=== PATIENT | female | born 1955 | race Caucasian/White ===

== ENCOUNTER 2019-03-03 17:41 | Observation (INO) | payer MEDICAID ==
[~2019-03-03] VITALS: Ht 152.4 cm; Wt 65.0 kg
[~2019-03-03 17:41] MED LIST: ATOR20TA38 PO; METF500T24 PO
[2019-03-03 17:42] VITALS: Ht 152.4 cm; Wt 65.0 kg
[2019-03-03] MEDS ORDERED: SOD CHLORIDE 0.9% 500 ML IV STA (17:42)
[2019-03-03] MEDS ORDERED: ASPIRIN 325 MG TAB PO STA (17:42)
[2019-03-03] MEDS ORDERED: ONDANSETRON 4 MG INJ IV STA (17:42)
[2019-03-03] MEDS ORDERED: morphine 2 MG INJ IV STA (17:42)
--- NOTE | 2019-03-03 17:56 | ERD ---
ER Documentation Chief Complaint Chief Complaint CP AND DIZZINESS X TODAY. HPI This is a very pleasant 63-year-old [place]-speaking female with a past medical history of hypertension high cholesterol that presents to the emergency department complaining of chest pain that began about an hour prior to arrival. The patient stated the pain was left substernal. It did not radiate to her neck arm back or jaw. The pain was 8 out of 10 in intensity. She had associated symptoms of nausea and dizziness but denied any emesis. The patient was called as a code green as she was in the hospital trying to find the emergency department when she felt very lightheaded and dizzy and had a sensation as thou gh she was going to pass out but did not have a complete transient loss of consciousness. She had no associated symptoms of shortness of breath. She does not smoke tobacco. She states she is never had any similar chest pain in the past. No recent travel or hospitalizations. ROS All systems reviewed and are negative except as per history of present illness. Medications Home Meds Reported Medications [None] No Conflict Check 08/11/10 Allergies Allergies: Coded Allergies: No Known Drug Allergy (Verified Allergy, Unknown, 08/11/10) PMhx/Soc History of Surgery: Yes (CSECTION) Anesthesia Reaction: No Hx Neurological Disorder: No Hx Respiratory Disorders: No Hx Cardiac Disorders: Yes (HTN) Hx Psychiatric Problems: No Hx Miscellaneous Medical Probl: No Hx Alcohol Use: No Hx Substance Use: No Hx Tobacco Use: No Smoking Status: Unknown if ever smoked Physical Exam Vitals Vital Signs Date Temp Pulse Resp B/P (MAP) Pulse Ox O2 O2 Flow FiO2 Time Delivery Rate 03/03/19 98.1 75 20 155/72 100 Nasal 2.0 17:43 (99) Cannula 03/03/19 98.1 76 20 155/72 100 17:42 (99) Physical Exam Constitutional:Well-developed. Well-nourished. HEENT:Normocephalic. Atraumatic.Pupils were equal round reactive to light. Moist mucous membranes.No tonsillar exudates. Neck: No nuchal rigidity. No lymphadenopathy. No posterior cervical spine tenderness or step-offs. Respiratory: Not using accessory muscles of respiration.Lungs were clear to auscultation bilaterally. No rhonchi. No rales. No wheezing. Cardiovascular: Regular rate regular rhythm.No murmurs. No rubs were appreciated.S1, S2 normal. Distal pulses are palpable 2+ bilaterally. GI: Abdomen was soft. Nontender. Non Distended. No pulsatile abdominal masses or bruits. No rebound. No guarding. Bowel sounds were present and normal. Muscle skeletal: Full range of motion of both the upper and lower extremities bilaterally.Normal muscle tone.No assymetrical calf tenderness or swelling. Skin: No petechia, no purpura. No lesions on the palms or the soles of the feet. No maculopapular rash. NEURO: Patient was alert, awake, orientated x3.No facial droop. Gait observed and normal with no ataxia.Speech had regular rate and rhythm. No focal neurological deficits. No nystagmus Results 24 hrs Laboratory Tests Test 03/03/19 17:47 Bedside Glucose 159 mg/dL Current Medications Medications Dose Sig/Bishnu Start Time Status Last (Trade) Ordered Route PRN Stop Time Admin Dose Reason Admin Sodium 500 ml @ Q1H STAT 03/03/19 Chloride 500 mls/hr IV 17:42 03/03/19 18:41 Aspirin 325 mg ONCE STAT 03/03/19 DC (Aspirin) PO 17:42 03/03/19 17:44 1 tab Q5M UP TO 3 03/03/19 Nitroglycerin DOSES PRN 18:00 SL .CHEST (Nitroglyceri PAIN n (Sl Tab) 0.4 Mg) Morphine 2 mg ONCE STAT 03/03/19 DC Sulfate IV 17:42 (morphine) 03/03/19 17:44 Ondansetron 4 mg ONCE STAT 03/03/19 DC HCl (Zofran IV 17:42 Inj) 03/03/19 17:44 Procedures/MDM The patient presented to the emergency department with chest pain. My clinical evaluation and workup was to distinguish minor causes of chest pain from acute life threatening conditions such as myocardial infarction, pulmonary embolism, aortic dissection, esophageal rupture, cardiac tamponade. The patient was placed on a cardiac cath lab manager and continuous pulse oximetry. IV access established by nursing staff. 12 Lead EKG tracing ordered and reviewed by myself showed: Normal sinus rhythm of 73 bpm and no arrhythmia. [place] interval normal. QRS duration normal. No ST segment elevation. Left axis deviation. T wave inversion in the anterior leads V2 V3 No ST segment depression. No changes consistent with acute ischemia. The patient had a chest radiograph which showed no infiltrates no pneumothorax and no pleural effusions. The patient was given aspirin nitroglycerin with no improvement of her chest pain. Therefore she was given intravenous morphine and Zofran and the pain improved. I did feel the patient required admission for observation for serial twelve-lead EKG tracings and cardiac set of enzymes. Patient will be admitted to the hospitalist. The patient also had a near syncope episode and I did feel is necessary to obtain a CT scan the patient's head there is no intracerebral hemorrhage mass- effect or midline shift. Departure Diagnosis: Primary Impression: Chest pain Chest pain type: unspecified Qualified Codes: R07.9 - Chest pain, unspecified Additional Impression: Near syncope Condition: Serious ROSALVA AMBRIZ MD Mar 03, 2019 17:56
[2019-03-03] MEDS ORDERED: NITROGLYCERIN (SL) 0.4 MG TAB SL PRN ×2 (18:00→19:30)
[2019-03-03] MEDS ORDERED: SOD CHLORIDE 0.45% 1,000 ML IV SCH (19:06)
[2019-03-03] MEDS ORDERED: MAGNESIUM HYDROXIDE 30ML CUP PO PRN (19:30)
[2019-03-03] MEDS ORDERED: HYDROCODONE/APAP (5/325) TAB PO PRN (19:30)
[2019-03-03] MEDS ORDERED: morphine 2 MG INJ IV PRN (19:30)
[2019-03-03] MEDS ORDERED: ALBUTEROL/IPRATROPIUM (NEB) 3 ML AMP HHN PRN (19:30)
[2019-03-03] MEDS ORDERED: ONDANSETRON 4 MG INJ IV PRN ×2 (19:30)
[2019-03-03] MEDS ORDERED: LORAZEPAM 2 MG INJ IV PRN (19:30)
[2019-03-03] MEDS ORDERED: ACETAMINOPHEN 325 MG TAB PO PRN ×2 (19:30)
[2019-03-03] MEDS ORDERED: NACL 0.9% 3 ML SYG IV SCH (19:30)
[2019-03-03] MEDS ORDERED: hydrALAzine 20 MG INJ IV PRN (19:30)
[2019-03-03] MEDS ORDERED: DOCUSATE SODIUM 100 MG CAP PO PRN (19:30)
[2019-03-03 21:01] VITALS: BP 122/64; PULSE 60; RESP 17
[2019-03-03] MEDS ORDERED: POTASSIUM CHLORIDE (SR) 20 MEQ TAB PO ONE (22:58)
[2019-03-03] MEDS: HEPARIN 5,000 UNIT/1 ML VIAL SC SCH (23:14)
[2019-03-04 00:07] VITALS: BP 117/64; PULSE 63; RESP 17
[2019-03-04 05:29] VITALS: BP 121/69; PULSE 60; RESP 17
--- NOTE | 2019-03-04 06:48 | HP ---
Date/Time of Note Date/Time of Note DATE: 03/03/19 TIME: 23:00 Assessment/Plan VTE Prophylaxis Risk score (from Ns)>0 risk: 3 SCD applied (from Ns): Yes Pharmacological prophylaxis: other Lines/Catheters IV Catheter Type (from Nrs): Peripheral IV Urinary Cath still in place: No Assessment/Plan Assessment/Plan 1. Chest pain: Rule out ACS -Continue telemetry monitoring -Supplemental oxygen, aspirin, BB, statin. As needed nitro -Serial troponin -2D echo and cardiology consult 2. Syncope -Head CT negative -Check orthostatics -Follow-up 2D echo results -Additional work-up including additional imaging per clinical course 3. Hypertension: BP within acceptable range 4. Dyslipidemia: Continue statin Result Diagram: 03/04/1944703/04/19447 Results 24hrs Laboratory Tests Test 03/03/19 17:47 03/03/19 17:50 03/03/19 17:51 03/03/19 19:46 Bedside Glucose 159 White Blood Count 8.5 Red Blood Count 4.44 Hemoglobin 13.3 Hematocrit 38.5 Mean Corpuscular 86.7 Volume Mean Corpuscular 30.0 Hemoglobin Mean Corpuscular 34.5 Hemoglobin Concent Red Cell 12.2 Distribution Width Platelet Count 350 Mean Platelet Volume 9.2 Immature 0.400 Granulocytes % Neutrophils % 53.3 Lymphocytes % 36.5 Monocytes % 8.1 Eosinophils % 1.3 Basophils % 0.4 Nucleated Red Blood 0.0 Cells % Immature 0.030 Granulocytes # Neutrophils # 4.5 Lymphocytes # 3.1 H Monocytes # 0.7 Eosinophils # 0.1 Basophils # 0.0 Nucleated Red Blood 0.0 Cells # Prothrombin Time 11.3 L Prothrombin Time 0.9 Ratio INR International 0.81 Normalized Ratio Activated 26.1 Partial Thromboplast Time Sodium Level 140 Potassium Level 3.2 L Chloride Level 99 Carbon Dioxide Level 31 Anion Gap 10 Blood Urea Nitrogen 11 Creatinine 0.53 Est Glomerular > 60 Filtrat Rate mL/min Glucose Level 151 Calcium Level 9.9 Total Bilirubin 0.6 Direct Bilirubin 0.00 Indirect Bilirubin 0.6 Aspartate Amino 31 Transf (AST/SGOT) Alanine 30 Aminotransferase (AL T/SGPT) Alkaline Phosphatase 70 Creatine Kinase 125 113 Creatine Kinase 1.2 0.7 Index Creatinine Kinase MB 1.44 0.74 (Mass) Troponin I < 0.012 < 0.012 B-Type Natriuretic 23 Peptide Total Protein 8.2 H Albumin 4.7 Globulin 3.50 H Albumin/Globulin 1.34 Ratio Lipase 150 Free Thyroxine 0.83 Test 03/04/19 01:06 03/04/19 04:48 Creatine Kinase 94 Creatine Kinase 0.6 Index Creatinine Kinase MB 0.61 (Mass) Troponin I < 0.012 White Blood Count 7.1 Red Blood Count 4.01 L Hemoglobin 12.0 Hematocrit 35.5 L Mean Corpuscular 88.5 Volume Mean Corpuscular 29.9 Hemoglobin Mean Corpuscular 33.8 Hemoglobin Concent Red Cell 12.8 Distribution Width Platelet Count 306 Mean Platelet Volume 9.4 Immature 0.400 Granulocytes % Neutrophils % 51.0 Lymphocytes % 37.9 Monocytes % 8.6 Eosinophils % 1.8 Basophils % 0.3 Nucleated Red Blood 0.0 Cells % Immature 0.030 Granulocytes # Neutrophils # 3.6 Lymphocytes # 2.7 Monocytes # 0.6 Eosinophils # 0.1 Basophils # 0.0 Nucleated Red Blood 0.0 Cells # Sodium Level 141 Potassium Level 4.5 Chloride Level 106 Carbon Dioxide Level 30 Anion Gap 5 Blood Urea Nitrogen 11 Creatinine 0.57 Est Glomerular > 60 Filtrat Rate mL/min Glucose Level 136 Hemoglobin A1c 6.7 H Calcium Level 9.0 Phosphorus Level 3.7 Magnesium Level 2.0 Triglycerides Level 410 H Cholesterol Level 227 H LDL Cholesterol, 115 Calculated HDL Cholesterol 30 L Cholesterol/HDL 7.5 Ratio Thyroid Stimulating 6.210 H Hormone (TSH) HPI/ROS Admit Date/Time Admit Date/Time Mar 03, 2019 at 19:02 Hx of Present Illness Patient is a 63-year-old female with a history of hypertension and dyslipidemia who was taken to the ER after a code green. Patient was complaining of chest pain mainly localized to the mid chest with radiation to both of her arms. She also had a syncopal episode. When she presented to the ER, blood pressure was 155/77. EKG without ST-T wave abnormalities and first troponin negative. Head CT showed mild presumed chronic small vessel ischemic changes otherwise no acute findings. PMH/Family/Social Past Medical History Past Surgical Hx: other (see HPI) Family History Significant Family History: other (see HPI) Social History Alcohol Use: see history Smoking Status: see history Drug Use: see history Exam Constitutional: other (No acute Distress) Head: normocephalic, atraumatic Eyes: PERRL Respiratory: normal air movement Cardiovascular: nl pulses Gastrointestinal: soft Extremities: normal pulses Medications Current Medications IV Flush (NS 3 ml) 3 ml PER PROTOCOL IV ; Start 03/03/19 at 19:30 Ondansetron HCl (Zofran Inj) 4 mg Q6H PRN IV NAUSEA/VOMITING; Start 03/03/19 at 19:30 Acetaminophen (Tylenol Tab) 650 mg Q6H PRN PO .PAIN 1-3 OR TEMP; Start 03/03/19 at 19:30 Acetaminophen/ Hydrocodone Bitart ([place] (5/325)) 1 tab Q6H PRN PO .MOD PAIN 4- 6; Start 03/03/19 at 19:30 Morphine Sulfate (morphine) 2 mg Q4H PRN IV .SEVERE PAIN 7-10; Start 03/03/19 at 19:30 Docusate Sodium (Colace) 100 mg Q12H PRN PO .CONSTIPATION; Start 03/03/19 at 19:30 Magnesium Hydroxide (Milk Of Mag) 30 ml DAILY PRN PO .CONSTIPATION; Start 03/03/19 at 19:30 Heparin Sodium (Porcine) (Heparin (5000 Units/1ml)) 5,000 unit Q12 SC Last administered on 03/03/19at 23:14; Admin Dose 5,000 UNIT; Start 03/03/19 at 21:00 Sodium Chloride 1,000 ml @ 75 mls/hr [id number] IV Last administered on 03/03/19at 21:00; Admin Dose 75 MLS/HR; Start 03/03/19 at 19:06 Lorazepam (Ativan) 0.5 mg Q6H PRN IV ANXIETY; Start 03/03/19 at 19:30 Albuterol/ Ipratropium (Duoneb) 3 ml Q4H RESP THERAPY PRN HHN SHORTNESS OF BREATH; Start 03/03/19 at 19:30 Hydralazine HCl (Apresoline) 10 mg Q6H PRN IV ELEVATED BLOOD PRESSURE; Start 03/03/19 at 19:30 Nitroglycerin (Nitroglycerin (Sl Tab) 0.4 Mg) 1 tab Q5M PRN SL ANGINA; Start 03/03/19 at 19:30 Aspirin (Ecotrin) 325 mg DAILY PO ; Start 03/04/19 at 09:00 Coded Allergies: No Known Drug Allergy (Verified Allergy, Unknown, 08/11/10) Social History Smoking Status: Never smoker Exam/Review of Systems Vital Signs Vitals Vital Signs Date Temp Pulse Resp B/P (MAP) Pulse Ox O2 O2 Flow FiO2 Time Delivery Rate 03/04/19 98.0 60 17 121/69 97 05:29 (86) 03/03/19 Nasal 2.0 19:49 Cannula DEYSI CAMACHO MD Mar 04, 2019 06:48
[2019-03-04 07:42] VITALS: BP 117/63; PULSE 61; RESP 18
[2019-03-04] MEDS: HEPARIN 5,000 UNIT/1 ML VIAL SC SCH (08:23)
[2019-03-04] MEDS ORDERED: ASPIRIN (EC) 325 MG TAB PO SCH (09:00)
[2019-03-04] MEDS ORDERED: METOPROLOL 25 MG TAB PO SCH (09:00)
[2019-03-04] MEDS ORDERED: ASPIRIN (EC) 81 MG TAB PO SCH (09:00)
--- NOTE | 2019-03-04 11:07 | PDOCDIS ---
Discharge Instructions CONDITION [id number] Patient Condition: [id number] Good HOME CARE INSTRUCTIONS: [id number] Special Diet: [id number] LOW CARB, REDUCED CALORIE ACTIVITY: [id number] Activity Restrictions: [id number] No Restrictions FOLLOW UP/APPOINTMENTS Follow-up Plan FOLLOW UP WITH YOUR PRIMARY CARE PHYSICIAN IN 1-2 WEEKS HONORIO SALDANA Mar 04, 2019 11:07
--- NOTE | 2019-03-04 11:24 | DS ---
Date/Time of Note Date/Time of Note DATE: 03/04/19 TIME: 11:12 Discharge Summary Admission/Discharge Info Admit Date/Time Mar 03, 2019 at 19:02 Discharge Date/Time March 04, 2019 Discharge Diagnosis 1. Chest pain secondary to muscle pain from anxiety -ACS ruled out 2. Syncope likely vasovagal secondary to stress and pain -Head CT negative -Vitals stable 3. Hypertension: BP within acceptable range 4. Dyslipidemia: DC with statin 5. Mild diabetes -A1c at 6.7, DC with metformin -Lifestyle changes advised Patient Condition: Good Hospital Course Patient 63-year-old female with no reported medical history who presents with chest pain and syncope. Chest pain is secondary to anxiety and syncope is likely vasovagal. Patient's affect is clearly anxious and pain appear to be reproducible with palpation. ACS was ruled out, CT head was negative. Patient was noted to have dyslipidemia and A1c 6.7 and was to be discharged with metformin and Lipitor. On day of discharge patient vitals, labs and physical exam are stable. Home Meds Active Scripts Atorvastatin Calcium* (Atorvastatin Calcium*) 20 Mg Tablet, 20 MG PO QHS, #60 TAB Prov:HONORIO SALDANA 03/04/19 Metformin Hcl* (Metformin Hcl*) 500 Mg Tablet, 500 MG PO WITH BREAKFAST DINNE, #60 TAB Prov:HONORIO SALDANA 03/04/19 Reported Medications [None] No Conflict Check 08/11/10 Follow-up Plan FOLLOW UP WITH YOUR PRIMARY CARE PHYSICIAN IN 1-2 WEEKS Primary Care Provider Not On Staff Doctor Time spent on discharge: > 30 minutes HONORIO SALDANA Mar 04, 2019 11:23
[2019-03-04 11:32] VITALS: BP 121/67; PULSE 67; RESP 18
--- NOTE | 2019-03-04 14:36 | RADRPT ---
Echocardiogram Report Patient Name: NANCY QUINONESPatient ID: [id number] : 1955 (63y 3m)Study Date: 03/04/2019 11:05:23 AM Gender: FAccession #: [id number] Tech: [facility] [place] Location: [facility] 2 Ref.Physician: ELEUTERIO MARINELLI Height(Cm): 152 BSA: 1.66Weight(Kg): 64.9 Quality: AdequateOrder Physician: ELEUTERIO MARINELLI Account #: Procedures: Echocardiographic Report: Transthoracic echocardiogram examination. Indications: Chest Pain. Measurements: 2D/M Mode Doppler Measurement Value Normal Range Measurement Value Normal Range LVIDd 2D 4.6 [ 3.8 - 5.2 ] cm AV Peak Yamil 1.3 [ 100.0 - 170.0 ] cm/sec LVIDs 2D 2.8 [ 2.2 - 3.5 ] cm AV Peak PG 7.0 [ 2.0 - 9.0 ] mmHg LVPWd 2D 0.9 [ 0.6 - 0.9 ] cm LVOT Peak Yamil 0.8 [ 70.0 - 110.0 ] cm/sec IVSd 2D 1.0 [ 0.6 - 0.9 ] cm LVOT Peak PG 3.0 [ 2.0 - 6.0 ] mmHg IVS/LVPW 2D 1.1 ratio MV E Peak Yamil 0.6 [ 60.0 - 130.0 ] cm/sec AoR Diam 2D 3.3 [ 2.3 - 3.1 ] cm MV A Peak Yamil 0.7 [ 100.0 - 120.0 ] cm/sec LA/Ao 2D 1 ratio MV E/A 0.8 [ 0.8 - 1.5 ] ratio LA Dimen 2D 3.7 [ 2.7 - 3.8 ] cm MV PHT 75.0 [ 20.0 - 100.0 ] msec MV Decel Time 256 [ 104 - 258 ] msec MV E/A 0.8 [ 0.8 - 1.5 ] ratio MV PHT 75.0 [ 20.0 - 100.0 ] msec TR Peak Yamil 2.4 [ 100.0 - 280.0 ] cm/sec TR Peak PG 23.0 mmHg PV Peak Yamil 0.8 [ 40.0 - 80.0 ] cm/sec PV Peak PG 3.0 mmHg Findings: Left Ventricle: Normal left ventricular cavity size. Mild global left ventricular systolic dysfunction. Tissue Doppler/Mitral Doppler indices are consistent with impaired relaxation (Stage I diastolic dysfunction). Mild hypertrophy of the basal septum. The left ventricular ejection fraction is visually estimated at 45-50 %. Right Ventricle: Normal right ventricular size. Normal right ventricular systolic function. Left Atrium: The left atrium is normal in size and appearance. Right Atrium: The right atrium is normal in size and appearance. Atrial Septum: Normal atrial septum. Mitral Valve: Normal appearance of the mitral valve leaflets. Minimal mitral annular calcification. Trivial mitral regurgitation. Aortic Valve: No significant aortic stenosis or insufficiency. Normal trileaflet aortic valve structure with minimal sclerosis. Tricuspid Valve: Normal appearance of the tricuspid valve. The estimated Peak RVSP is 26 mmHg. There is mild tricuspid regurgitation. Pulmonic Valve: Normal pulmonic valve appearance and function with trivial (physiologic) regurgitation. There is trace pulmonic regurgitation. Pericardium: Normal pericardium with no significant pericardial effusion. Aorta: There is mild aortic root dilation. There is mild aortic root calcification. IVC: Normal inferior vena cava appearance. Pulmonary Artery: Normal pulmonary artery size. Conclusions: Normal left ventricular cavity size. Mild global left ventricular systolic dysfunction. Tissue Doppler/Mitral Doppler indices are consistent with impaired relaxation (Stage I diastolic dysfunction). Mild hypertrophy of the basal septum. The left ventricular ejection fraction is visually estimated at 45-50 %. Normal appearance of the mitral valve leaflets. Minimal mitral annular calcification. Trivial mitral regurgitation. Normal appearance of the tricuspid valve. The estimated Peak RVSP is 26 mmHg. There is mild tricuspid regurgitation. Normal pulmonic valve appearance and function with trivial (physiologic) regurgitation. There is trace pulmonic regurgitation. Electronically Signed By: Donny Pavon 2019-03-04 14:35:24 PDT
[2019-03-04] MEDS ORDERED: ATORVASTATIN 40 MG TAB PO SCH (21:00)
== END 2019-03-04 14:10 | disposition home or self-care (01) ==
LOC: E/R 17:41 → 6WM 19:02
PROVIDERS: ADMIT Internal Medicine; ATTEND Internal Medicine
DX: R07.89 Other chest pain (principal); R55 Syncope and collapse; I10 Essential (primary) hypertension; E78.00 Pure hypercholesterolemia, unspecified; E11.9 Type 2 diabetes mellitus without complications
CPT/HCPCS: 70450; 71045; 80048; 80053; 80061; 82550; 82553; 82962; 83036; 83690; 83735; 83880; 84100; 84439; 84443; 84484; 85025; 85610; 85730; 93306; J1644; J2270; J2405; J7040; Z7500; Z7610; 93005; 96374; 96375; 99217; G0378